=== PATIENT | female | born 1975 | race Two or more races ===

== ENCOUNTER 2021-03-12 19:05 | Emergency (ER) | payer OTHER ==
[~2021-03-12] VITALS: Ht 162.6 cm; Wt 93.9 kg
[2021-03-12] MEDS ORDERED: SYNTHROID175 MCG PO (19:21)
[2021-03-12] MEDS ORDERED: NORFLEX100MG PO (22:59)
[2021-03-12] MEDS ORDERED: CYCLOBENZAPRINE10 MG PO (22:59)
== END 2021-03-12 23:01 | disposition home or self-care (01) ==
LOC: ER 19:05
DX: R25.2 Cramp and spasm (principal)